=== PATIENT | female | born 1975 | race Caucasian/White ===

== ENCOUNTER → 2024-02-27 06:53 | Outpatient (REF) | payer BC, SELFPAY | LOC: MRI 3T 06:53 | PROVIDERS: ATTENDING PHYSICIAN Physician Assistant Medical; REFERRING PHYSICIAN Orthopaedic Surgery Hand Surgery | DX: S63.501A Unspecified sprain of right wrist, initial encounter (principal); M25.531 Pain in right wrist | CPT/HCPCS: 73221 ==